=== PATIENT | female | born 2000 | race Hispanic/Latino ===

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

== ENCOUNTER 2022-01-25 14:43 | Inpatient (IN) | payer OTHER ==
[~2022-01-25 14:43] MED LIST: Iopamidol-370 76% 500 ML 1 ML ONE
[2022-01-25 15:34] LABS: #Lymphocytes 1.4 thou/uL (1.20-3.40); #Monocytes 0.3 thou/uL (0.11-0.59); #Neutrophils 1.8 thou/uL (1.40-6.50); %Eosinophils 0.5 % (0.0-10.0); %Lymphocytes 39.8 % (28.0-48.0); %Monocytes 7.5 % (0.0-4.0); %Neutrophils 51.2 % (31.0-61.0); Hemoglobin 16.3 g/dL (12.0-16.0); Mean Corpuscular Hemoglobin 33.3 pg (25.0-35.0); Mean Platelet Volume 7.3 fL (7.4-10.4); Platelet Count 276 thou/uL (130-400); RBC Distribution Width 11.1 % (11.5-14.5); White Blood Cell (WBC) Count 3.4 thou/uL (4.8-10.8)
[2022-01-25 15:50] LABS: BHCG - Serum Negative (NEGATIVE); Pregs Control Background? CLEAR/WHITE (CLR/WHITE); Pregs Control Bar Appear? YES (CONTROL BAR)
[2022-01-25 16:00] LABS: ALT (SGPT) 18 U/L (8-55); AST (SGOT) 25 U/L (5-30); Albumin 1.6 g/dL (3.5-5.0); Alkaline Phosphatase 91 U/L (40-100); Anion Gap 11 mmol/L (10-20); BUN (Urea Nitrogen) 7 mg/dL (8.4-21.0); Bilirubin, Total 0.2 mg/dL (0.2-1.2); Calc. Creatinine Clearance 0 mL/min (70-130); Calcium 8.1 mg/dL (7.8-10.44); Carbon Dioxide 23 mmol/L (22-29); Chloride 109 mmol/L (98-107); Globulin 3.4 g/dL (2.4-3.5); Glucose 100 mg/dL (70-105); Potassium 3.7 mmol/L (3.5-5.1); Sodium 139 mmol/L (136-145)
[2022-01-25] MEDS ORDERED: Ondansetron PF 4 MG/2 ML Vial ONE (17:54)
[2022-01-25] MEDS ORDERED: Morphine 4 MG/ML VIAL ONE (17:54)
[2022-01-25 19:25] LABS: Bilirubin Negative (Negative); Blood, Urine 1+ (Negative); Clarity Clear (Clear); Glucose, Urine (Dipstick) Normal (Negative); Ketone, Urine 10 mg/dL (Negative); Leukocyte Negative Leu/uL (Negative); Nitrite Negative (Negative); Protein, Urine (Dipstick) 600 mg/dL (Neg-Trace); Specific Gravity, Urine 1.039 (1.002-1.036); Squamous Epithelial 0-3 HPF (0-3); Urobilinogen Normal mg/dL (Less than 2); WBC/HPF 0-3 HPF (0-3)
[2022-01-25 19:32] LABS: Bacteria/HPF Rare-Few HPF (None Seen)
[2022-01-25] MEDS ORDERED: Acetaminophen 325 MG TAB ONE (21:42)
[2022-01-25] MEDS ORDERED: Acetaminophen 325 MG TAB PO PRN (22:46)
[2022-01-25] MEDS ORDERED: Ondansetron PF 4 MG/2 ML Vial IVP PRN (22:46)
[2022-01-26 00:09] VITALS: BMI 30.4
[2022-01-26 02:22] LABS: Creatinine, Urine 74.02 mg/dL (47-110)
[2022-01-26] MEDS ORDERED: Albumin 25% 25 GM/100 ML BOT IVPB SCH (07:15)
[2022-01-26] MEDS ORDERED: Furosemide 20 MG/2 ML VIAL SLOW IVP SCH (07:15)
[2022-01-26 07:42] LABS: #Lymphocytes 1.2 thou/uL (1.20-3.40); #Monocytes 0.3 thou/uL (0.11-0.59); #Neutrophils 1.4 thou/uL (1.40-6.50); %Eosinophils 1.5 % (0.0-10.0); %Lymphocytes 41.4 % (28.0-48.0); %Monocytes 9.6 % (0.0-4.0); %Neutrophils 47.5 % (31.0-61.0); Hemoglobin 13.5 g/dL (12.0-16.0); Mean Corpuscular HGB CONC 33.9 g/dL (32.0-36.0); Mean Corpuscular Volume 97.3 fL (78.0-98.0); Mean Platelet Volume 7.5 fL (7.4-10.4); Platelet Count 206 thou/uL (130-400); Red Blood Cell (RBC) Count 4.09 mill/uL (4.00-5.20); White Blood Cell (WBC) Count 2.9 thou/uL (4.8-10.8)
[2022-01-26 08:02] LABS: Anion Gap 9 mmol/L (10-20); BUN (Urea Nitrogen) 5 mg/dL (8.4-21.0); Calc. Creatinine Clearance 193 mL/min (70-130); Calcium 7.2 mg/dL (7.8-10.44); Carbon Dioxide 24 mmol/L (22-29); Chloride 108 mmol/L (98-107); Glucose 80 mg/dL (70-105); Potassium 3.3 mmol/L (3.5-5.1); Sodium 138 mmol/L (136-145)
[2022-01-26] MEDS ORDERED: Enoxaparin Sodium 40 MG/0.4 ML SYRINGE SC SCH (09:00)
[2022-01-26 11:29] LABS: Hep B Core Total Ab Non-Reactive (NonReactive); Hep B Core Total Index 0.08 S/CO (0-0.79)
[2022-01-26 11:30] LABS: HBSAg Index 0.25 S/CO (0-0.99); Hep B Surf Ag Non-Reactive S/CO (NonReactive); Hep C IgG Ab Non-Reactive (NonReactive); Hep C Index 0.08 S/CO (0-0.79)
[2022-01-26 11:38] LABS: SARS-CoV-2 PCR by NAA Not Detected (NotDetected)
[2022-01-26 12:13] LABS: PTT 33.5 sec (22.9-36.1); Prothrombin Time 13.3 sec (12.0-14.7)
[2022-01-26] MEDS ORDERED: Sodium Bicarbonate 2.5 MEQ/5 ML VIAL ONE (13:00)
[2022-01-26] MEDS ORDERED: Fentanyl 100 MCG/2 ML VIAL ONE (13:01)
[2022-01-26] MEDS ORDERED: Midazolam HCl 2 mg/2 ml Vial ONE (13:01)
[2022-01-26] MEDS: Furosemide 20 MG/2 ML VIAL SLOW IVP SCH (14:55)
[2022-01-26 22:58] LABS: Urine Total Volume 2725 mL (600-1600)
[2022-01-27 00:25] LABS: Protein - 24 Hr 11854 mg/24 hr (Less than 300); Protein, Urine 435 mg/dL (1-14)
[2022-01-27] MEDS: Furosemide 20 MG/2 ML VIAL SLOW IVP SCH ×2 (05:34→14:36)
[2022-01-27 07:00] LABS: #Eosinphils 0.1 thou/uL (0.0-0.7); #Monocytes 0.3 thou/uL (0.11-0.59); #Neutrophils 1.5 thou/uL (1.40-6.50); %Basophils 1.1 % (0.0-1.0); %Eosinophils 1.8 % (0.0-10.0); %Neutrophils 53.2 % (31.0-61.0); Hemoglobin 14.1 g/dL (12.0-16.0); Mean Corpuscular Hemoglobin 33.2 pg (25.0-35.0); Mean Corpuscular Volume 97.5 fL (78.0-98.0); Mean Platelet Volume 7.1 fL (7.4-10.4); Platelet Count 211 thou/uL (130-400); RBC Distribution Width 10.9 % (11.5-14.5); Red Blood Cell (RBC) Count 4.24 mill/uL (4.00-5.20); White Blood Cell (WBC) Count 2.9 thou/uL (4.8-10.8)
[2022-01-27 07:20] LABS: Anion Gap 8 mmol/L (10-20); BUN (Urea Nitrogen) 6 mg/dL (8.4-21.0); Calc. Creatinine Clearance 201 mL/min (70-130); Calcium 7.6 mg/dL (7.8-10.44); Carbon Dioxide 27 mmol/L (22-29); Chloride 108 mmol/L (98-107); Glucose 86 mg/dL (70-105); Potassium 3.3 mmol/L (3.5-5.1); Sodium 140 mmol/L (136-145)
[2022-01-27] MEDS: Losartan 25 MG TAB PO SCH (08:40)
[2022-01-27] MEDS ORDERED: Polyethylene Glycol 3350 17 GM Packet PO SCH (11:15)
[2022-01-27] MEDS ORDERED: Acetaminophen 325 MG TAB PO PRN (14:31)
[2022-01-27 15:58] LABS: Complement-C4 6.4 mg/dL (15-57)
[2022-01-27] MEDS ORDERED: Atorvastatin Calcium 10 MG TAB PO SCH (21:00)
[2022-01-28] MEDS: Furosemide 20 MG/2 ML VIAL SLOW IVP SCH ×2 (05:31→14:14)
[2022-01-28 06:11] LABS: #Monocytes 0.2 thou/uL (0.11-0.59); #Neutrophils 1.1 thou/uL (1.40-6.50); %Basophils 0.7 % (0.0-1.0); %Eosinophils 2.1 % (0.0-10.0); %Lymphocytes 42.6 % (28.0-48.0); %Monocytes 9.5 % (0.0-4.0); %Neutrophils 45.1 % (31.0-61.0); Mean Corpuscular Hemoglobin 33.5 pg (25.0-35.0); Mean Corpuscular Volume 95.9 fL (78.0-98.0); Mean Platelet Volume 7.1 fL (7.4-10.4); Platelet Count 199 thou/uL (130-400); RBC Distribution Width 10.8 % (11.5-14.5); Red Blood Cell (RBC) Count 4.19 mill/uL (4.00-5.20); White Blood Cell (WBC) Count 2.3 thou/uL (4.8-10.8)
[2022-01-28 06:26] LABS: Anion Gap 8 mmol/L (10-20); BUN (Urea Nitrogen) 8 mg/dL (8.4-21.0); Calc. Creatinine Clearance 209 mL/min (70-130); Calcium 7.3 mg/dL (7.8-10.44); Carbon Dioxide 27 mmol/L (22-29); Chloride 107 mmol/L (98-107); Glucose 88 mg/dL (70-105); Potassium 3.6 mmol/L (3.5-5.1); Sodium 138 mmol/L (136-145)
[2022-01-28 06:40] LABS: HIV (1/2) Antibody/Antigen Non-Reactive (NonReactive); HIV 1/2 INDEX 0.13 S/CO (<1.00)
[2022-01-28 07:48] VITALS: BP 106/68; TEMP 98.7
[2022-01-28] MEDS: Losartan 25 MG TAB PO SCH (08:15)
[2022-01-28] MEDS ORDERED: Ondansetron PF 4 MG/2 ML Vial IVP PRN (09:37)
[2022-01-28] MEDS ORDERED: Mycophenolate 250 MG CAP PO SCH ×2 (10:45→11:00)
[2022-01-28 11:15] LABS: A/G Ratio 0.5 (0.7-1.7); Albumin 1.1 g/dL (2.9-4.4); Alpha 1 0.1 g/dL (0.0-0.4); Alpha 2 1.1 g/dL (0.4-1.0); Beta 0.6 g/dL (0.7-1.3); Gamma 0.5 g/dL (0.4-1.8); Globulin, Total 2.3 g/dL (2.2-3.9); M-Spike Not Observed g/dL (Not Observed)
[2022-01-28 11:36] LABS: Creatinine, Urine 46.42 mg/dL (47-110)
[2022-01-28 14:17] LABS: ANA Symphony (Qualitative) POSITIVE (Negative); CENP IgG Antibody Less than 0.4 EliAU/mL (<7 Negative); Jo-1 IgG Antibody Less than 0.3 EliAU/mL (<7 Negative); RNP70 IgG Antibody 0.8 EliAU/mL (<7 Negative); SSA/Ro IgG Antibody Less than 0.3 EliAU/mL (<7 Negative); SSB/La IgG Antibody Less than 0.3 EliAU/mL (<7 Negative); Scleroderma-70 IgG Antibody Less than 0.6 EliAU/mL (<7 Negative); dsDNA IgG Antibody 2.6 IU/mL (<10 Negative)
[2022-01-29] MEDS ORDERED: Mycophenolate 250 MG CAP PO SCH (09:00)
[2022-01-29 14:39] LABS: Cytoplasmic (C-ANCA) <1:20 titer (Neg:<1:20); Perinuclear (P-ANCA) <1:20 titer (Neg:<1:20)
[2022-01-30 10:12] LABS: Albumin, PEP 24hr Ur 66.5 % (NOT ESTAB.); Alpha-1-Globulin, PEP 24h Ur 10.3 % (NOT ESTAB.); Alpha-2-Globulin, PEP 24h Ur 10.1 % (NOT ESTAB.); Beta Globulin, PEP 24h Ur 9.2 % (NOT ESTAB.); Gamma Globulin, PEP 24h Ur 3.8 % (NOT ESTAB.); M-Spike,% PEP 24hr Ur Not Observed % (Not Observed); Protein, PEP 24hr calculated 15334 mg/24 hr (30-150); Protein, Urine 562.7 mg/dL (Not Estab.)
== END 2022-01-28 15:33 | disposition home or self-care (01) | DRG 700 ==
LOC: ERS 14:43 → T4-A 21:44 → ERS 23:40 → OBSVTOIN 01-26 07:31
PROVIDERS: ADMIT Internal Medicine; ATTEND Internal Medicine
PROC: 0TB13ZX Excision of Left Kidney, Percutaneous Approach, Diagnostic (ICD-10-PCS; principal; 2022-01-26)
DX: N04.9 Nephrotic syndrome with unspecified morphologic changes (principal); M32.14 Glomerular disease in systemic lupus erythematosus; N18.1 Chronic kidney disease, stage 1; I12.9 Hypertensive chronic kidney disease with stage 1 through stage 4 chronic kidney disease, or unspecified chronic kidney disease; E78.5 Hyperlipidemia, unspecified; E88.09 Other disorders of plasma-protein metabolism, not elsewhere classified; R80.9 Proteinuria, unspecified; E87.6 Hypokalemia; D63.1 Anemia in chronic kidney disease; Z20.822 Contact with and (suspected) exposure to COVID-19; Z90.721 Acquired absence of ovaries, unilateral; Z86.018 Personal history of other benign neoplasm
CPT/HCPCS: 36415; 50200; 71045; 74177; 76770; 77012; 80048; 80053; 80061; 81003; 81015; 82306; 82570; 83516; 83880; 84156; 84165; 84166; 84703; 85025; 85610; 85730; 86037; 86038; 86160; 86161; 86225; 86235; 86704; 86803; 87340; 87389; 88329; 93970; 96374; 96375; J1940; J2250; J2270; J2405; J3010; J7517; P9047; Q9967; U0003; U0005

== ENCOUNTER 2022-03-02 09:41 | Inpatient (IN) | payer OTHER ==
[2022-03-02 10:22] LABS: #Basophils 0.1 thou/uL (0.0-0.2); #Lymphocytes 1.7 thou/uL (1.20-3.40); #Monocytes 0.3 thou/uL (0.11-0.59); #Neutrophils 1.4 thou/uL (1.40-6.50); %Basophils 2.7 % (0.0-1.0); %Eosinophils 1.1 % (0.0-10.0); %Lymphocytes 48.5 % (28.0-48.0); %Monocytes 8.5 % (0.0-4.0); %Neutrophils 39.2 % (31.0-61.0); Hemoglobin 15.3 g/dL (12.0-16.0); Mean Corpuscular HGB CONC 33.9 g/dL (32.0-36.0); Mean Corpuscular Hemoglobin 32.5 pg (25.0-35.0); Mean Corpuscular Volume 95.9 fL (78.0-98.0); Mean Platelet Volume 7.2 fL (7.4-10.4); Platelet Count 252 thou/uL (130-400); RBC Distribution Width 11.5 % (11.5-14.5); Red Blood Cell (RBC) Count 4.71 mill/uL (4.00-5.20); White Blood Cell (WBC) Count 3.6 thou/uL (4.8-10.8)
[2022-03-02 10:44] LABS: ALT (SGPT) 24 U/L (8-55); AST (SGOT) 24 U/L (5-34); Albumin 1.3 g/dL (3.5-5.0); Alkaline Phosphatase 74 U/L (40-100); Anion Gap 8 mmol/L (10-20); BUN (Urea Nitrogen) 8 mg/dL (7.0-18.7); Bilirubin, Total 0.2 mg/dL (0.2-1.2); Calc. Creatinine Clearance 0 mL/min (70-130); Calcium 7.8 mg/dL (7.8-10.44); Carbon Dioxide 25 mmol/L (22-29); Chloride 107 mmol/L (98-107); Glucose 83 mg/dL (70-105); Potassium 3.7 mmol/L (3.5-5.1); Protein, Total 4.3 g/dL (6.0-8.3); Sodium 136 mmol/L (136-145)
[2022-03-02] MEDS ORDERED: Acetaminophen 500 MG TAB ONE (11:13)
[2022-03-02] MEDS ORDERED: Furosemide 100 MG/10 ML VIAL ONE (11:17)
[2022-03-02] MEDS ORDERED: Ondansetron ODT 4 MG TAB PO PRN (13:09)
[2022-03-02] MEDS ORDERED: Acetaminophen 325 MG TAB PO PRN (13:09)
[2022-03-02 14:04] LABS: Bilirubin Negative (Negative); Blood, Urine Trace (Negative); Clarity Turbid (Clear); Glucose, Urine (Dipstick) Normal (Negative); Ketone, Urine Negative (Negative); Leukocyte Negative Leu/uL (Negative); Nitrite Negative (Negative); Protein, Urine (Dipstick) Greater than 600 mg/dL (Neg-Trace); Specific Gravity, Urine 1.045 (1.002-1.036); Urobilinogen Normal mg/dL (Less than 2); pH, Urine 6.5 (5.0-9.0)
[2022-03-02 14:05] LABS: Bacteria/HPF 3+ HPF (None Seen); WBC/HPF 21-50 HPF (0-3)
[2022-03-02] MEDS ORDERED: Furosemide 40 MG/4 ML VIAL SLOW IVP SCH ×2 (15:00→16:36)
[2022-03-02 15:05] VITALS: BMI 29.7
[2022-03-02] MEDS ORDERED: predniSONE 20 MG TAB PO SCH (16:00)
[2022-03-02 16:13] LABS: Creatinine, Urine 362.81 mg/dL (47-110)
[2022-03-02] MEDS: Heparin 5,000 UNITS/ML VIAL SC SCH ×2 (16:55→21:36)
[2022-03-02] MEDS: Atorvastatin Calcium 10 MG TAB PO SCH (21:34)
[2022-03-03 06:40] LABS: #Lymphocytes 1.1 thou/uL (1.20-3.40); #Monocytes 0.2 thou/uL (0.11-0.59); %Basophils 0.3 % (0.0-1.0); %Eosinophils 0.5 % (0.0-10.0); %Lymphocytes 34.6 % (28.0-48.0); %Monocytes 4.7 % (0.0-4.0); %Neutrophils 59.8 % (31.0-61.0); Hemoglobin 13.5 g/dL (12.0-16.0); Mean Corpuscular HGB CONC 34.3 g/dL (32.0-36.0); Mean Corpuscular Hemoglobin 33.1 pg (25.0-35.0); Mean Corpuscular Volume 96.6 fL (78.0-98.0); Mean Platelet Volume 7.2 fL (7.4-10.4); Platelet Count 249 thou/uL (130-400); RBC Distribution Width 11.4 % (11.5-14.5); Red Blood Cell (RBC) Count 4.08 mill/uL (4.00-5.20); White Blood Cell (WBC) Count 3.3 thou/uL (4.8-10.8)
[2022-03-03 07:06] LABS: Anion Gap 10 mmol/L (10-20); BUN (Urea Nitrogen) 7 mg/dL (7.0-18.7); Calc. Creatinine Clearance 208 mL/min (70-130); Calcium 7.4 mg/dL (7.8-10.44); Carbon Dioxide 23 mmol/L (22-29); Cardiac Risk 4.1 (Less than 4.5); Chloride 107 mmol/L (98-107); Cholesterol 235 mg/dl (< 200 Desired); Glucose 113 mg/dL (70-105); HDL Cholesterol 57 mg/dL (>60 Neg Risk); LDL Cholesterol, Calculated 158 mg/dL; Sodium 136 mmol/L (136-145); Triglycerides 102 mg/dL (Less than 150)
[2022-03-03] MEDS: predniSONE 20 MG TAB PO SCH (09:51)
[2022-03-03] MEDS: Heparin 5,000 UNITS/ML VIAL SC SCH ×3 (09:53→20:59)
[2022-03-03] MEDS: Losartan 25 MG TAB PO SCH (09:53)
[2022-03-03] MEDS ORDERED: Furosemide 40 MG/4 ML VIAL SLOW IVP SCH (12:00)
[2022-03-03] MEDS ORDERED: Furosemide 20 MG/2 ML VIAL SLOW IVP SCH (16:15)
[2022-03-03] MEDS: Atorvastatin Calcium 10 MG TAB PO SCH (20:58)
[2022-03-04 05:41] LABS: #Lymphocytes 2.6 thou/uL (1.20-3.40); #Monocytes 0.4 thou/uL (0.11-0.59); #Neutrophils 3.3 thou/uL (1.40-6.50); %Basophils 0.3 % (0.0-1.0); %Eosinophils 0.2 % (0.0-10.0); %Lymphocytes 40.7 % (28.0-48.0); %Monocytes 6.6 % (0.0-4.0); %Neutrophils 52.1 % (31.0-61.0); Mean Corpuscular HGB CONC 34.5 g/dL (32.0-36.0); Mean Corpuscular Hemoglobin 33.1 pg (25.0-35.0); Mean Corpuscular Volume 95.9 fL (78.0-98.0); Mean Platelet Volume 7.2 fL (7.4-10.4); Platelet Count 273 thou/uL (130-400); RBC Distribution Width 11.5 % (11.5-14.5); Red Blood Cell (RBC) Count 3.92 mill/uL (4.00-5.20); White Blood Cell (WBC) Count 6.3 thou/uL (4.8-10.8)
[2022-03-04 05:59] LABS: Anion Gap 7 mmol/L (10-20); BUN (Urea Nitrogen) 9 mg/dL (7.0-18.7); Calc. Creatinine Clearance 200 mL/min (70-130); Calcium 7.2 mg/dL (7.8-10.44); Carbon Dioxide 27 mmol/L (22-29); Chloride 105 mmol/L (98-107); Glucose 91 mg/dL (70-105); Potassium 3.3 mmol/L (3.5-5.1); Sodium 136 mmol/L (136-145)
[2022-03-04] MEDS ORDERED: Potassium Chloride 20 MEQ TAB PO SCH (08:00)
[2022-03-04] MEDS: predniSONE 20 MG TAB PO SCH (09:05)
[2022-03-04] MEDS: Heparin 5,000 UNITS/ML VIAL SC SCH (09:05)
[2022-03-04] MEDS: Losartan 25 MG TAB PO SCH ×2 (09:07→09:41)
[2022-03-04] MEDS ORDERED: Mycophenolate 250 MG CAP PO SCH ×2 (10:45→21:00)
[2022-03-04 12:48] VITALS: BP 95/65; TEMP 98.1
== END 2022-03-04 13:12 | disposition home or self-care (01) | DRG 547 ==
LOC: ERS 09:41 → T4-B 11:32 → OBSVTOIN 03-03 16:28
PROVIDERS: ADMIT Family Medicine; ATTEND Internal Medicine
DX: M32.14 Glomerular disease in systemic lupus erythematosus (principal); E78.5 Hyperlipidemia, unspecified; N18.2 Chronic kidney disease, stage 2 (mild); E88.09 Other disorders of plasma-protein metabolism, not elsewhere classified; Z20.822 Contact with and (suspected) exposure to COVID-19; Z79.899 Other long term (current) drug therapy
CPT/HCPCS: 36415; 71045; 80048; 80053; 80061; 81003; 81015; 82570; 83735; 84156; 84443; 85025; 87086; 93005; 94760; 96376; G0378; J1644; J1940; J7512; J7517; U0003; U0005